=== PATIENT | female | born 1955 | race Caucasian/White ===

== ENCOUNTER 2021-02-18 20:53 | Emergency (ER) | payer BC | END 2021-02-19 00:15 | disposition home or self-care (01) | LOC: ER1 20:53 | DX: S61.412A Laceration without foreign body of left hand, initial encounter (principal); Z23 Encounter for immunization; W26.8XXA Contact with other sharp object(s), not elsewhere classified, initial encounter; Y92.009 Unspecified place in unspecified non-institutional (private) residence as the place of occurrence of the external cause | CPT/HCPCS: 12001; 90471; 90715; 99283 ==